=== PATIENT | female | born 1980 | race Caucasian/White ===

== ENCOUNTER 2021-06-12 16:19 | Emergency (ER) | payer MEDICAID ==
[~2021-06-12] VITALS: Ht 160 cm; Wt 160.0 kg
[2021-06-12 16:31] VITALS: BP 198/102
[2021-06-12] MEDS ORDERED: LIDOCAINE HCL 1% 20ML VIAL (Pyxis) INJ INFIL ONE (18:30)
[2021-06-12] MEDS ORDERED: CEFTRIAXONE SODIUM 500 MG/VIAL IM ONE (18:30)
[2021-06-12 18:52] LABS: CLARITY URINE TURBID (CLEAR); COLOR URINE DARK YELLOW (YELLOW); KETONES URINE NEGATIVE (NEGATIVE); LEUKOCYTE ESTERASE URINE 2+ (NEGATIVE); NITRITE URINE NEGATIVE (NEGATIVE); OCCULT BLOOD URINE NEGATIVE (NEGATIVE); PH URINE 8.5 (4.5-8.0); PROTEIN URINE 1+ (NEGATIVE); SPECIFIC GRAVITY URINE 1.025 (1.005-1.030)
[2021-06-12] MEDS ORDERED: DOXY100T28 PO (19:14)
[2021-06-12] MEDS ORDERED: METR-167 PO (19:14)
[2021-06-12] MEDS ORDERED: NAPR-681 PO (19:14)
== END 2021-06-12 19:36 | disposition home or self-care (01) ==
LOC: ER 16:19
DX: N76.0 Acute vaginitis (principal); I10 Essential (primary) hypertension; E11.9 Type 2 diabetes mellitus without complications; Z98.890 Other specified postprocedural states
CPT/HCPCS: 81003; 81025; 87210; 87491; 87591; 96372; 99283; J0696; J3490